=== PATIENT | male | born 1955 | race Two or more races ===

== ENCOUNTER 2016-07-07 05:26 | Emergency (ER) | payer MEDICAID ==
[~2016-07-07] VITALS: Ht 167.6 cm; Wt 65.8 kg
[2016-07-07 06:04] LABS: BASOPHILS % (AUTO) 0.3 % (0.0-2.0); DIFF TOTAL % 100 %; EOSINOPHILS # (AUTO) 0.2 /CMM (0.0-0.7); EOSINOPHILS % (AUTO) 1.5 % (0.0-6.0); HEMATOCRIT 46 % (39-51); HEMOGLOBIN 15.2 g/dL (13.5-17.5); LYMPHOCYTES # (AUTO) 2.9 /CMM (0.8-4.8); MEAN CORPUSCULAR HEMOGLOBIN 29 PG (26.0-33.0); MEAN CORPUSCULAR HGB CONC 33 g/dl (31.0-36.0); MEAN CORPUSCULAR VOLUME 87 fL (80-96); MONOCYTES # (AUTO) 0.3 /CMM (0.1-1.30); MONOCYTES % (AUTO) 2.3 % (2.0-12.0); NEUTROPHILS # (AUTO) 10.2 /CMM (1.8-8.9); NEUTROPHILS % (AUTO) 74.9 % (43.0-81.0); PLATELET COUNT (AUTO) 419 /CMM (150-450); RED BLOOD CELL COUNT(AUTO) 5.29 MIL/uL (4.5-6.0); WHITE BLOOD COUNT (AUTO) 13.6 K/uL (4.3-11.0)
[2016-07-07 06:11] LABS: CREATININE 1.2 mg/dL (0.6-1.3); POTASSIUM 3.7 mmol/L (3.5-5.1)
[2016-07-07] MEDS ORDERED: IV NS 0.9% 1,000 ML ONE ×2 (06:16→07:31)
[2016-07-07] MEDS ORDERED: IV SET PRIMARY 1 EA INFUS.SET MC ONE (06:16)
[2016-07-07 06:19] LABS: TROPONIN I 0.023 ng/mL (0.00-0.056)
[2016-07-07 06:30] LABS: INR 0.97 (0.87-1.13); PROTHROMBIN TIME 10.5 SECS (9.5-12.7)
[2016-07-07] MEDS ORDERED: IV NS 0.9% 1,000 ML BAG IV ONE (06:30)
[2016-07-07 07:17] LABS: ALANINE AMINOTRANSFERASE 24 U/L (12-78); ALBUMIN 3.1 g/dL (3.4-5.0); ASPARTATE AMINOTRANSFERASE 17 U/L (15-37); BILIRUBIN,TOTAL 0.2 mg/dL (0.2-1.0)
[2016-07-07 07:23] LABS: LACTIC ACID 2.4 mmol/L (0.4-2.0)
[2016-07-07 07:26] LABS: KETONES,URINE NEGATIVE (NEGATIVE); LEUKOCYTE ESTERASE ,URINE NEGATIVE (NEGATIVE); PH,URINE 7.5 (5.0-8.0)
[2016-07-07 07:28] LABS: ADD UA MICROSCOPIC YES
[2016-07-07 07:29] LABS: ADD URINE CULTURE NO; MUCUS,URINE Few /LPF (None Seen); RBC,URINE 0-2 /HPF (0-2); WBC,URINE 0-2 /HPF (0-3)
[2016-07-07 07:30] LABS: INDIRECT BILIRUBIN 0.2 mg/dL (0.0-1.1)
[2016-07-07] MEDS ORDERED: IV NS 0.9% 1,000 ML IV ONE (07:30)
[2016-07-07 07:50] LABS: *LACTIC ACID REFLEX FLAG YES
[2016-07-07 07:58] VITALS: BP 122/86
== END 2016-07-07 08:00 | disposition home or self-care (01) ==
LOC: ER 05:28
DX: B34.9 Viral infection, unspecified (principal)
CPT/HCPCS: 36415; 71010-TC; 80048-TC; 80076-TC; 81000-TC; 83605-TC; 84484-TC; 85025-TC; 85730-TC; 87040-TC; A4606; J7030; Z7610

== ENCOUNTER 2019-04-21 05:37 | Emergency (ER) | payer MEDICAID ==
[~2019-04-21] VITALS: Ht 172.7 cm; Wt 67.1 kg
--- NOTE | 2019-04-21 05:50 | NUR ---
VIOLETA FROM HOME TO ER BED 10. AAOX4. NO RESP DISTRESS NOTED. C/O FLU LIKE SYMPTOMS SINCE YESTERDAY. PT REPORT THAT HE HAS BEEN COUGHING, REPORT DIZZYNESS, NAUSEA, VOMMITING AND DIARRHEA. PT IS NOTED HYPERTENSIVE UPON ASSESSMENT. AWAITING MD FOR EVAL.
--- NOTE | 2019-04-21 06:54 | NUR ---
IV LINE OBTAINED ON R AC 18G. BLOOD DRAWN AND GIVEN TO CATTLE MANAGER AT BEDSIDE
[2019-04-21] MEDS ORDERED: IV NS 0.9% 1,000 ML BAG IV ONE (07:00)
[2019-04-21] MEDS ORDERED: ONDANSETRON HCL/PF 4 MG/2 ML VIAL IVP ONE (07:00)
[2019-04-21 07:01] LABS: BASOPHILS # (AUTO) 0.1 /CMM (0.0-0.2); BASOPHILS % (AUTO) 0.4 % (0.0-2.0); EOSINOPHILS % (AUTO) 0.1 % (0.0-6.0); HEMATOCRIT 44 % (39-51); HEMOGLOBIN 14.5 g/dL (13.5-17.5); LYMPHOCYTES # (AUTO) 0.6 /CMM (0.8-4.8); LYMPHOCYTES % (AUTO) 4.3 % (20.0-44.0); MEAN CORPUSCULAR HGB CONC 33 g/dl (31.0-36.0); MEAN CORPUSCULAR VOLUME 88 fL (80-96); MONOCYTES # (AUTO) 1.3 /CMM (0.1-1.30); MONOCYTES % (AUTO) 9.7 % (2.0-12.0); NEUTROPHILS # (AUTO) 11.4 /CMM (1.8-8.9); NEUTROPHILS % (AUTO) 85.5 % (43.0-81.0); PLATELET COUNT (AUTO) 313 /CMM (150-450); RED BLOOD CELL COUNT(AUTO) 4.96 MIL/uL (4.5-6.0); WHITE BLOOD COUNT (AUTO) 13.3 K/uL (4.3-11.0)
[2019-04-21 07:16] LABS: CARBON DIOXIDE 25 mmol/L (21-32); CHLORIDE 100 mmol/L (98-107); CREATININE 1.1 mg/dL (0.6-1.3); GLUCOSE 148 mg/dL (74-106); POTASSIUM 3.9 mmol/L (3.5-5.1); SODIUM SERUM 136 mmol/L (136-145); UREA NITROGEN, BLOOD 16 mg/dL (7-18)
--- NOTE | 2019-04-21 07:24 | NUR ---
REPORT GIVEN TO MICHAEL COE FOR [facility]LE.
[2019-04-21 07:25] VITALS: BP 181/86
[2019-04-21] MEDS ORDERED: ONDANSETRON HCL/PF 4 MG/2 ML VIAL ONE (07:48)
[2019-04-21] MEDS ORDERED: ONDANSETRON HCL/PF - ER 4 MG/2 ML VIAL IV ONE (08:00)
--- NOTE | 2019-04-21 08:11 | NUR ---
Patient awake alert non distress his @ bedside made aware plan of care
--- NOTE | 2019-04-21 08:26 | NUR ---
Patient discharged to home in stable condition. Written and verbal after care instructions given. Patient verbalizes understanding of instruction.
[2019-04-21] MEDS ORDERED: OSELTAMIVIR PHOSPHATE 75 MG CAPSULE PO ONE (08:30)
--- NOTE | 2019-04-21 08:46 | NUR ---
Patient DC home Diagnose is Influenza agrees to follow up PMD in 2 days ,patient is able to ambulated non difficulties ,helplock removed RAC noted cath intact no redness no edema . .Primary dx is Influenza not pharyngitis unable to deleted the pharyngitis .Thank you
--- NOTE | 2019-04-21 08:49 | NUR ---
Patient discharged to home in stable condition. Written and verbal after care instructions given. Patient verbalizes understanding of instruction.
== END 2019-04-21 08:28 | disposition home or self-care (01) ==
LOC: ER 05:43
DX: J10.1 Influenza due to other identified influenza virus with other respiratory manifestations (principal); R11.2 Nausea with vomiting, unspecified; R42 Dizziness and giddiness; Z88.8 Allergy status to other drugs, medicaments and biological substances
CPT/HCPCS: 36415; 71045; 80048; 83605; 84484; 85025; 87804 ×2; 93005; 96361; 96374; 96376; 99284; J2405 ×2; J7030

== ENCOUNTER 2025-02-01 09:34 | Emergency (ER) | payer MEDICAID, MEDICARE ==
[~2025-02-01] VITALS: Ht 162.6 cm; Wt 70.3 kg
[2025-02-01] MEDS ORDERED: LISI1TAB29 PO (10:04)
[2025-02-01 10:16] VITALS: BP 186/97; TEMP 98.5; O2SAT 99
== END 2025-02-01 10:17 | disposition home or self-care (01) ==
LOC: ER 09:38
DX: I10 Essential (primary) hypertension (principal); Z88.0 Allergy status to penicillin; Z88.1 Allergy status to other antibiotic agents; Z79.899 Other long term (current) drug therapy